=== PATIENT | female | born 1950 | race Caucasian/White ===

== ENCOUNTER → 2017-08-16 | Outpatient (CLI) | payer MEDICARE, OTHER ==
[~2017-08-16] MED LIST: ASPI-1471 PO; BENA1TAB58 PO; BENA1TAB59 PO; BLOO-1037 ASDIRECTED; BLOO-960 MC; CALC200T27 PO; CALC500T6 PO; CHOL100059 PO; GLUC100026 PO; GOLYTE PO; LANC-714 MC; LEVO100T95 PO; LEVO88TA45 PO; LOR5 PO; MAGN100T2 PO; MULT1TAB64 PO; OMEG500C7 PO; PSYL1000 MC; TURM500C4; VITA150T2 PO; [UNRECOGNIZED DRUG - CODE] PO
--- NOTE | 2017-08-16 10:22 | RADIOLOGY IMAGING REPORT ---
FACILITY: [facility] PATIENT NAME: Melly Rodriguez : 1950 MR: [id number] V: [id number] EXAM DATE: [id number] ORDERING PHYSICIAN: SANTIAGO ROMERO TECHNOLOGIST: Location: [facility] Patient: Melly Rodriguez : 1950 Visit/Account:[id number] Date of Sevice: 08/16/2017 BONE MINERAL DENSITY HISTORY: Osteopenia COMPARISON: DEXA scan 11/28/2008 FINDINGS: LUMBAR SPINE: Bone mineral density (BMD) measured from L1-L4 correlates with a Z-score of -0.4 and a T-score of -2. 1 which is osteopenia as defined by the World Health Organization. The corresponding risk of fractur e in the lumbar spine is increased compared with a young adult reference population. This value has decreased by 22.4% since the prior study. More than 5% change is considered significant. HIP: Bone mineral density (BMD) measured in the left hip or femoral neck region correlates with a Z-score of -0.8 and a T-score of -2.4 which is osteopenia as defined by the World Health Organization. The corresponding risk of fracture in the hip is increased compared with a young adult reference populati on. This value has decreased by 10.9% since the prior study. More than 5% change is considered sign ificant. Bone mineral density (BMD) measured in the left Femoral Neck region measures 0.704 g/cm2. IMPRESSION: 1. Lumbar spine: Osteopenia. There has been decrease in the bone mineral density since the previou s exam. 2. Left Hip: Osteopenia. There has been decrease in the bone mineral density since the previous ex am. 3. Left Femoral Neck: Bone Mineral Density is 0.704 g/cm2. FRAX? WHO Fracture Risk Assessment Tool link: <http://www.shef.ac.uk/FRAX/tool.jsp?locationValue=9> PLEASE NOTE: 1) The World Health Organization defines low BMD as follows: T-score Normal > -1 Osteopenia < -1 and > -2.5 Osteoporosis < -2.5 without fractures Established osteoporosis < -2.5 with fractures 2) In general, you may wish to consider: Diagnosis Treatment Follow-up DEXA Normal BMD Prevention 2-3 years Osteopenia Prevention/therapy 1-2 years Osteoporosis Therapy Yearly 3) Fracture risk estimated from the T-score is more accurate for vertebral fractures (often spontane ous) than for hip fractures. Report Dictated By: Jorge A Johnson at 08/16/2017 10:16 AM Report E-Signed By: Jorge A Johnson at 08/16/2017 10:18 AM WSN:[id number]
== END ==
LOC: RAD 02:32
PROVIDERS: ATTEND Emergency Medicine
DX: M85.89 Other specified disorders of bone density and structure, multiple sites (principal); Z78.0 Asymptomatic menopausal state
CPT/HCPCS: 77080

== ENCOUNTER → 2017-08-20 | Outpatient (CLI) | payer MEDICARE, OTHER | LOC: LAB 09:36 | PROVIDERS: ATTEND Emergency Medicine | DX: R73.03 Prediabetes (principal); M85.80 Other specified disorders of bone density and structure, unspecified site; Z87.81 Personal history of (healed) traumatic fracture | CPT/HCPCS: 36415; 82306; 82310; 83036; 83970; 84160; 84165 ==

== ENCOUNTER → 2017-12-20 | Outpatient (CLI) | payer MEDICARE, OTHER ==
--- NOTE | 2017-12-20 17:00 | RADIOLOGY IMAGING REPORT ---
FACILITY: [facility] PATIENT NAME: TINY SHANNON : [id number] MR: [id number] V: [id number] EXAM DATE: [id number] ORDERING PHYSICIAN: SANTIAGO ROMERO TECHNOLOGIST: Macey Trevino PROCEDURE:BILATERAL DIGITAL SCREENING MAMMOGRAM WITH CAD ASSISTED INTERPRETATION & 3D TOMOSYNTHESIS COMPARISON:Prior mammograms 12/18/16, 12/16/15, 12/03/14, 12/26/13. INDICATIONS:screening FINDINGS: Moderately heterogeneous fibroglandular tissue is seen throughout the breasts. The parenchymal pattern has remained stable allowing for difference in mammographic technique & patient positioning. There is no evidence of malignant appearing mass, malignant appearing calcifications or other secondary sign of malignancy in either breast. DIAGNOSTIC CATEGORY 1--NEGATIVE. RECOMMENDATIONS: ROUTINE MAMMOGRAM AND CLINICAL EVALUATION. IMPRESSION: BIRADS 1: Negative. No significant abnormality is seen. Dictated by: Humaira Moreno M.D. on 12/20/2017 at 16:14 Transcribed by: JULIANNA on 12/20/2017 at 16:20 Approved by: Humaira Moreno M.D. on 12/20/2017 at 16:59 [facility]
== END ==
LOC: MAMO 01:28
PROVIDERS: ATTEND Emergency Medicine
DX: Z12.31 Encounter for screening mammogram for malignant neoplasm of breast (principal)
CPT/HCPCS: 77063; 77067

== ENCOUNTER → 2018-03-03 | Outpatient (CLI) | payer MEDICARE, OTHER ==
[~2018-03-03] MED LIST changes: +FAMC500T18 PO
== END ==
LOC: LAB 16:41
PROVIDERS: ATTEND Emergency Medicine
DX: G62.9 Polyneuropathy, unspecified (principal)
CPT/HCPCS: 36415; 82607; 82746

== ENCOUNTER → 2019-01-23 | Outpatient (CLI) | payer MEDICARE, OTHER ==
--- NOTE | 2019-01-24 10:47 | RADIOLOGY IMAGING REPORT ---
[place] [facility] [place]IENT NAME: TINY SHANNON : [id number] MR: [id number] V: [id number] EXAM DATE: [id number] ORDERING PHYSICIAN: SANTIAGO ROMERO TECHNOLOGIST: Macey Trevino PROCEDURE: BILATERAL DIGITAL SCREENING MAMMOGRAM WITH CAD ASSISTED INTERPRETATION & 3D TOMOSYNTHESIS REASON FOR STUDY: Screening. COMPARISON: 12/20/17, with priors to 12/03/14. VIEWS OBTAINED: 2D & 3D full field CC & MLO projections. BREAST DENSITY: The breast parenchyma is heterogeneously dense. MAMMOGRAM FINDINGS: There are no mammographic findings concerning for malignancy. No significant interval change. IMPRESSION: BIRADS 1: Negative. DIAGNOSTIC CATEGORY 1--NEGATIVE. RECOMMENDATIONS: ROUTINE MAMMOGRAM AND CLINICAL EVALUATION IN 1YR. Dictated by: Jorge A Stratton on 01/24/2019 at 9:09 Transcribed by: JULIANNA on 01/24/2019 at 10:19 Approved by: Jorge A Stratton on 01/24/2019 at 10:43 [facility]
== END ==
LOC: MAMO 00:37
PROVIDERS: ATTEND Emergency Medicine
DX: Z12.31 Encounter for screening mammogram for malignant neoplasm of breast (principal); Z80.3 Family history of malignant neoplasm of breast
CPT/HCPCS: 77063; 77067